=== PATIENT | female | born 1985 | race Caucasian/White ===

== ENCOUNTER 2022-02-08 12:09 | Emergency (ER) | payer OTHER ==
[~2022-02-08] VITALS: Ht 170.2 cm; Wt 64.0 kg
[2022-02-08 12:42] LABS: BASOPHILS % 0.2 % (0.0-1.0); EOSINOPHILS # (AUTO) 0.1 (0.0-0.4); EOSINOPHILS % 0.5 % (0.0-6.0); HEMATOCRIT 39.9 % (34.2-44.1); LYMPHOCYTES # (AUTO) 1.6 (1.0-3.2); MEAN CORPUSCULAR HEMOGLOBIN 32.1 pg (28-32); MEAN CORPUSCULAR HGB CONC 35.1 g/dL (31-35); MEAN CORPUSCULAR VOLUME 91.5 fL (81-99); MONOCYTES # (AUTO) 0.7 (0.2-0.8); MONOCYTES % 6.2 % (4.4-11.3); NEUTROPHILS % 78.8 % (38.7-80.0); PLATELET COUNT 271 x10e3/uL (140-360); RED BLOOD COUNT 4.36 x10e6/uL (3.6-5.1); RED CELL DISTRIBUTION WIDTH 11.4 % (11.7-14.4)
[2022-02-08 13:06] LABS: ALBUMIN 3.7 g/dL (3.5-5.0); ANION GAP 12.8 mmol/L (8-16); CREATININE, SERUM 0.65 mg/dL (0.57-1.11); POTASSIUM 3.8 mmol/L (3.5-5.1)
[2022-02-08 13:38] LABS: FREE THYROXINE INDEX 1.7788 (1.4-3.8); THYROID STIMULATING HORMONE 1.025 uIU/mL (0.350-4.940)
[2022-02-08 15:01] VITALS: BP 112/69
== END 2022-02-08 14:25 | disposition home or self-care (01) ==
LOC: ER 12:12
DX: R00.2 Palpitations (principal); R06.02 Shortness of breath; R20.0 Anesthesia of skin
CPT/HCPCS: 36415; 70450; 71045; 80053; 84436; 84443; 84479; 84484; 85025; 93005; 99284

== ENCOUNTER 2024-11-01 14:42 | Emergency (ER) | payer OTHER ==
[~2024-11-01] VITALS: Ht 170.2 cm; Wt 82.8 kg
[2024-11-01 14:53] VITALS: TEMP 98.3
[2024-11-01] MEDS ORDERED: VITAFOL-OB+DHA1 EACH (15:24)
[2024-11-01] MEDS ORDERED: IOPAMIDOL 370 MG/ML 100 ML INFUS..BTL INJ ONE (15:25)
[2024-11-01 17:55] VITALS: PULSE 72; RESP 14; O2SAT 99
== END 2024-11-01 18:04 | disposition home or self-care (01) ==
LOC: FSED 15:13
DX: R00.2 Palpitations (principal); R07.89 Other chest pain; R42 Dizziness and giddiness; R94.31 Abnormal electrocardiogram [ECG] [EKG]
CPT/HCPCS: 71260; 80053; 81003; 81025; 82553; 84484; 85025; 93005; 99284; Q9967